=== PATIENT | male | born 1995 | race Caucasian/White ===

== ENCOUNTER 2017-02-08 14:31 | Emergency (ER) | payer SELFPAY ==
[~2017-02-08] VITALS: Ht 175.3 cm; Wt 80.0 kg
[2017-02-08 14:33] VITALS: BP 139/85; PULSE 75; RESP 18; TEMP 98.5; O2SAT 98
== END 2017-02-08 17:09 | disposition left against medical advice (07) ==
LOC: NETRI 14:31
DX: R10.9 Unspecified abdominal pain (principal); Z53.21 Procedure and treatment not carried out due to patient leaving prior to being seen by health care provider
CPT/HCPCS: 99281